=== PATIENT | male | born 1990 | race Caucasian/White ===

== ENCOUNTER 2016-04-21 11:28 | Emergency (ER) | payer OTHER ==
[~2016-04-21 11:28] MED LIST: BUPR15TASR PO; DIPH50CA PO; FISH120012 PO; GLUCTAB6 PO; SUPE1TAB PO; VITMTA PO
--- NOTE | 2016-04-21 12:51 | REP ---
Clinical: Trauma. Technique: AP, lateral, bilateral oblique views of the right digit. Findings: There is an acute avulsion corner fracture along the extensor compartment at the base of the distal phalanx with overlying swelling. Impression: Corner fracture along the extensor compartment at the base of the distal phalanx. Signed by Clinton Cain MD 04/21/2016 12:43 P
--- NOTE | 2016-04-21 13:04 | EDDOCDS ---
Physician Documentation [facility] Name: Jay Frazier Age: 25 yrs Sex: Male : 1990 Arrival Date: 04/21/2016 Time: 11:28 Bed TR8 Private MD: [facility] [place] Disposition: 04/21/16 12:53 Discharged to Home/Self Care. Impression: Mallet finger of right finger(s) - fifth. - Condition is Stable. - Discharge Instructions: Cast or Splint Care, Mallet Finger. - Medication Reconciliation, Local Pharmacy Hours form. - Follow up: [facility]; When: Tomorrow; Reason: Recheck today's complaints, Continuance of care. Follow up: Donald Espinosa; When: Call to arrange an appointment; Reason: Recheck today's complaints. - Problem is new. - Symptoms are unchanged. - Notes: keep finger in splint, arrange follow up with orthopedics. Historical: - Allergies: No known drug Allergies; - Home Meds: 1. none - PMHx: Depression; - PSHx: none; - Social history: Smoking status: Patient states was never smoker of tobacco. No barriers to communication noted, The patient speaks fluent German, Speaks appropriately for age. - Family history: Not pertinent. - : The pt / caregiver states he / she is not on anticoagulants. Home medication list is obtained from the patient. - Exposure Risk Screening:: None identified. Vital Signs: 04/21 11:30 BP 122 / 63; Pulse 89; Resp 18; Temp 97.2(O); Pulse Ox 98% on R/A; Weight 77.11 kg / ct3 170 lbs (R); Height 5 ft. 10 in. (177.80 cm) (R); Pain 2/10; 12:59 BP 118 / 77 RA Sitting (auto/lg); Pulse 73; Resp 18; Temp 97.7(T); Pulse Ox 98% on R/A; rs6 Pain 1/10; 11:30 Body Mass Index 24.39 (77.11 kg, 177.80 cm) ct3 MDM: 12:17 Fingers Ordered. EDMS Signatures: Dispatcher [employer] EDMS Samy Alexander PA-C PA-C ar2 Shanelle Nelson RN RN hs1 Nicolasa Lacey,BK RN ms18 BRENDAD
--- NOTE | 2016-04-21 13:04 | EDDOCDS ---
Nurse's Notes [facility] Name: Jay Frazier Age: 25 yrs Sex: Male : 1990 Arrival Date: 04/21/2016 Time: 11:28 Bed TR8 Private MD: MEFlor CHINCHILLA Diagnosis: Mallet finger of right finger(s)-fifth Presentation: 04/21 11:39 Presenting complaint: Patient states: thinks he might have broken his little finger on hs1 right hand. Patient states injury occurred was ice skating 6 days ago. Adult Sepsis Screening: The patient does not have new or worsening altered mentation. Patient's respiratory rate is less than 22. Systolic blood pressure is greater than 100. Patient has a qSOFA score of 0- Negative Sepsis Screen. Suicide/Homicide risk assessment- the patient denies having any suicidal and/or homicidal ideations and does not present with any other emotional, behavioral or mental health complaints. 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 Transition of care: patient was not received from another setting of care. 11:39 Acuity: NAHOMY Level 4 hs1 11:39 Method Of Arrival: Walkin/Carried/Asstd hs1 Triage Assessment: 11:40 General: Appears in no apparent distress, Behavior is appropriate for age, cooperative. hs1 Pain: Denies pain. HIV screening NA for this visit Offered previously. Musculoskeletal: Bony deformity noted of dorsal aspect of distal phalanx of right little finger. Historical: - Allergies: No known drug Allergies; - Home Meds: 1. none - PMHx: Depression; - PSHx: none; - Social history: Smoking status: Patient states was never smoker of tobacco. No barriers to communication noted, The patient speaks fluent Tajik, Speaks appropriately for age. - Family history: Not pertinent. - : The pt / caregiver states he / she is not on anticoagulants. Home medication list is obtained from the patient. - Exposure Risk Screening:: None identified. Screenin:00 Screening information is obtained from the patient. Fall risk: No risks identified. ms18 Assistance ADL's: requires no assistance with activities of daily living. Abuse/DV Screen: The patient / caregiver reports he/she is: not in a situation that causes fear, pain or injury. Nutritional screening: No deficits noted. Advance Directives: There is no living will. home support is adequate. Assessment: 13:00 General: Appears in no apparent distress, comfortable, well nourished, well groomed, ms18 Behavior is appropriate for age, cooperative. Pain: Location: dorsal aspect of distal phalanx of right little finger Pain currently is 1 out of 10 on a pain scale. Neurological: Level of Consciousness is awake, alert, obeys commands, Oriented to person, place, time. Respiratory: Airway is patent Respiratory effort is even, unlabored. Derm: Skin is pink, warm & dry. Musculoskeletal: No deformity noted. Vital Signs: 11:30 BP 122 / 63; Pulse 89; Resp 18; Temp 97.2(O); Pulse Ox 98% on R/A; Weight 77.11 kg (R); ct3 Height 5 ft. 10 in. (177.80 cm) (R); Pain 2/10; 12:59 BP 118 / 77 RA Sitting (auto/lg); Pulse 73; Resp 18; Temp 97.7(T); Pulse Ox 98% on R/A; rs6 Pain 1/10; 11:30 Body Mass Index 24.39 (77.11 kg, 177.80 cm) ct3 Vitals: 11:30 Log In Time: April 21, 2016 at 11:27. ct3 ED Course: 11:29 Patient visited by Nicci Camacho PCA. ct3 11:29 [facility] is Private Physician. ct3 11:29 Patient moved to Waiting ct3 11:31 Patient moved to Pre RCE ct3 11:40 Triage Initiated hs1 12:10 Patient moved to Triage 1 ms18 12:12 Samy Alexander PA-C is PHCP. ar2 12:12 Whitney Mayorga MD is Attending Physician. ar2 12:13 Patient visited by Samy Alexander PA-C. ar2 12:22 Patient moved to TR1 ms18 12:41 Patient moved to PR1 / 25 ms18 12:53 [facility] is Referral Physician. ar2 12:53 Donald Espinosa is Referral Physician. ar2 12:59 Patient visited by Nika Clement PCA. rs6 13:00 Patient moved to TR8 ms18 13:00 The patient / caregiver is instructed regarding the plan of care and ED course. Patient ms18 has correct armband on for positive identification. Property sent home with patient. :Personal belongings accompany Pt. 13:00 No IV's were initiated during this patient's visit. No procedures done that require ms18 assistance. Karrie CAPELLAN splinted pt's finger. Order Results: There are currently no results for this order. Outcome: 12:53 Discharge ordered by Provider. ar2 13:00 Discharge Assessment: Patient awake, alert and oriented x 3. No cognitive and/or ms18 functional deficits noted. Patient verbalized understanding of disposition instructions. patient administered narcotics - no. The following High Risk Discharge criteria are identified: None. Discharged to home ambulatory. Condition: good Condition: stable Condition: improved. Discharge instructions given to patient, Instructed on discharge instructions, follow up and referral plans. Demonstrated understanding of instructions, Pt was receptive of discharge instructions/ teaching. No special radiology studies were completed. 13:03 Patient left the ED. ms18 Signatures: Samy Alexander, LISSET PA-C ar2 Shanelle Nelson, RN RN hs1 Nicci Camacho, OUTBOUND SUPERVISOR OUTBOUND SUPERVISOR ct3 Nicolasa Lacey,BK RN ms18 Nika Clement, OUTBOUND SUPERVISOR OUTBOUND SUPERVISOR rs6 MTDD
--- NOTE | 2016-04-23 14:04 | EDDOCDS ---
Physician Documentation [facility] Name: Jay Frazier Age: 25 yrs Sex: Male : 1990 Arrival Date: 04/21/2016 Time: 11:28 Bed TR8 Private MD: [facility] [place] Disposition: 04/21/16 12:53 Discharged to Home/Self Care. Impression: Mallet finger of right finger(s) - fifth. - Condition is Stable. - Discharge Instructions: Cast or Splint Care, Mallet Finger. - Medication Reconciliation, Local Pharmacy Hours form. - Follow up: [facility]; When: Tomorrow; Reason: Recheck today's complaints, Continuance of care. Follow up: Donald Espinosa; When: Call to arrange an appointment; Reason: Recheck today's complaints. - Problem is new. - Symptoms are unchanged. - Notes: keep finger in splint, arrange follow up with orthopedics. Historical: - Allergies: No known drug Allergies; - Home Meds: 1. none - PMHx: Depression; - PSHx: none; - Social history: Smoking status: Patient states was never smoker of tobacco. No barriers to communication noted, The patient speaks fluent Croatian, Speaks appropriately for age. - Family history: Not pertinent. - : The pt / caregiver states he / she is not on anticoagulants. Home medication list is obtained from the patient. - Exposure Risk Screening:: None identified. Vital Signs: 04/21 11:30 BP 122 / 63; Pulse 89; Resp 18; Temp 97.2(O); Pulse Ox 98% on R/A; Weight 77.11 kg / ct3 170 lbs (R); Height 5 ft. 10 in. (177.80 cm) (R); Pain 2/10; 12:59 BP 118 / 77 RA Sitting (auto/lg); Pulse 73; Resp 18; Temp 97.7(T); Pulse Ox 98% on R/A; rs6 Pain 1/10; 11:30 Body Mass Index 24.39 (77.11 kg, 177.80 cm) ct3 MDM: 12:17 Fingers Ordered. EDMS 14:39 T-Sheet-- Draft Copy was scanned into [employer] and attached to record. gb 14:40 Radiology Report was scanned into [employer] and attached to record. gb Signatures: Dispatcher [employer] EDMS Idania Garg, Reg Reg gb Samy Alexander, LISSET DARLING ar2 Shanelle Nelson RN RN hs1 Nicolasa Lacey RN RN ms18 The chart was reviewed and I authenticate all verbal orders and agree with the evaluation and treatment provided.Attachments: 14:39 T-Sheet-- Draft Copy gb Chart Complete MTDD
--- NOTE | 2016-04-23 14:04 | EDDOCDS ---
Physician Documentation [facility] Name: Jay Frazier Age: 25 yrs Sex: Male : 1990 Arrival Date: 04/21/2016 Time: 11:28 Bed TR8 Private MD: [facility] [place] Disposition: 04/21/16 12:53 Discharged to Home/Self Care. Impression: Mallet finger of right finger(s) - fifth. - Condition is Stable. - Discharge Instructions: Cast or Splint Care, Mallet Finger. - Medication Reconciliation, Local Pharmacy Hours form. - Follow up: [facility]; When: Tomorrow; Reason: Recheck today's complaints, Continuance of care. Follow up: Donald Espinosa; When: Call to arrange an appointment; Reason: Recheck today's complaints. - Problem is new. - Symptoms are unchanged. - Notes: keep finger in splint, arrange follow up with orthopedics. Historical: - Allergies: No known drug Allergies; - Home Meds: 1. none - PMHx: Depression; - PSHx: none; - Social history: Smoking status: Patient states was never smoker of tobacco. No barriers to communication noted, The patient speaks fluent Korean, Speaks appropriately for age. - Family history: Not pertinent. - : The pt / caregiver states he / she is not on anticoagulants. Home medication list is obtained from the patient. - Exposure Risk Screening:: None identified. Vital Signs: 04/21 11:30 BP 122 / 63; Pulse 89; Resp 18; Temp 97.2(O); Pulse Ox 98% on R/A; Weight 77.11 kg / ct3 170 lbs (R); Height 5 ft. 10 in. (177.80 cm) (R); Pain 2/10; 12:59 BP 118 / 77 RA Sitting (auto/lg); Pulse 73; Resp 18; Temp 97.7(T); Pulse Ox 98% on R/A; rs6 Pain 1/10; 11:30 Body Mass Index 24.39 (77.11 kg, 177.80 cm) ct3 MDM: 12:17 Fingers Ordered. EDMS 14:39 T-Sheet-- Draft Copy was scanned into [employer] and attached to record. gb 14:40 Radiology Report was scanned into [employer] and attached to record. gb Signatures: Dispatcher [employer] EDMS Idania Garg, Reg Reg gb Samy Alexander, LISSET DARLING ar2 Shanelle Nelson RN RN hs1 Nicolasa Lacey RN RN ms18 The chart was reviewed and I authenticate all verbal orders and agree with the evaluation and treatment provided.Attachments: 14:39 T-Sheet-- Draft Copy gb Chart Complete MTDD
--- NOTE | 2016-04-23 14:04 | EDDOCDS ---
Nurse's Notes [facility] Name: Jay Frazier Age: 25 yrs Sex: Male : 1990 Arrival Date: 04/21/2016 Time: 11:28 Bed TR8 Private MD: KYFlor CHINCHILLA Diagnosis: Mallet finger of right finger(s)-fifth Presentation: 04/21 11:39 Presenting complaint: Patient states: thinks he might have broken his little finger on hs1 right hand. Patient states injury occurred was ice skating 6 days ago. Adult Sepsis Screening: The patient does not have new or worsening altered mentation. Patient's respiratory rate is less than 22. Systolic blood pressure is greater than 100. Patient has a qSOFA score of 0- Negative Sepsis Screen. Suicide/Homicide risk assessment- the patient denies having any suicidal and/or homicidal ideations and does not present with any other emotional, behavioral or mental health complaints. 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 Transition of care: patient was not received from another setting of care. 11:39 Acuity: NAHOMY Level 4 hs1 11:39 Method Of Arrival: Walkin/Carried/Asstd hs1 Triage Assessment: 11:40 General: Appears in no apparent distress, Behavior is appropriate for age, cooperative. hs1 Pain: Denies pain. HIV screening NA for this visit Offered previously. Musculoskeletal: Bony deformity noted of dorsal aspect of distal phalanx of right little finger. Historical: - Allergies: No known drug Allergies; - Home Meds: 1. none - PMHx: Depression; - PSHx: none; - Social history: Smoking status: Patient states was never smoker of tobacco. No barriers to communication noted, The patient speaks fluent Turkish, Speaks appropriately for age. - Family history: Not pertinent. - : The pt / caregiver states he / she is not on anticoagulants. Home medication list is obtained from the patient. - Exposure Risk Screening:: None identified. Screenin:00 Screening information is obtained from the patient. Fall risk: No risks identified. ms18 Assistance ADL's: requires no assistance with activities of daily living. Abuse/DV Screen: The patient / caregiver reports he/she is: not in a situation that causes fear, pain or injury. Nutritional screening: No deficits noted. Advance Directives: There is no living will. home support is adequate. Assessment: 13:00 General: Appears in no apparent distress, comfortable, well nourished, well groomed, ms18 Behavior is appropriate for age, cooperative. Pain: Location: dorsal aspect of distal phalanx of right little finger Pain currently is 1 out of 10 on a pain scale. Neurological: Level of Consciousness is awake, alert, obeys commands, Oriented to person, place, time. Respiratory: Airway is patent Respiratory effort is even, unlabored. Derm: Skin is pink, warm & dry. Musculoskeletal: No deformity noted. Vital Signs: 11:30 BP 122 / 63; Pulse 89; Resp 18; Temp 97.2(O); Pulse Ox 98% on R/A; Weight 77.11 kg (R); ct3 Height 5 ft. 10 in. (177.80 cm) (R); Pain 2/10; 12:59 BP 118 / 77 RA Sitting (auto/lg); Pulse 73; Resp 18; Temp 97.7(T); Pulse Ox 98% on R/A; rs6 Pain 1/10; 11:30 Body Mass Index 24.39 (77.11 kg, 177.80 cm) ct3 Vitals: 11:30 Log In Time: April 21, 2016 at 11:27. ct3 ED Course: 11:29 Patient visited by Nicci Camacho PCA. ct3 11:29 [facility] is Private Physician. ct3 11:29 Patient moved to Waiting ct3 11:31 Patient moved to Pre RCE ct3 11:40 Triage Initiated hs1 12:10 Patient moved to Triage 1 ms18 12:12 Samy Alexander PA-C is PHCP. ar2 12:12 Whitney Mayorga MD is Attending Physician. ar2 12:13 Patient visited by Samy Alexander PA-C. ar2 12:22 Patient moved to TR1 ms18 12:41 Patient moved to PR1 / 25 ms18 12:53 [facility] is Referral Physician. ar2 12:53 Donald Espinosa is Referral Physician. ar2 12:59 Patient visited by Nika Clement PCA. rs6 13:00 Patient moved to TR8 ms18 13:00 The patient / caregiver is instructed regarding the plan of care and ED course. Patient ms18 has correct armband on for positive identification. Property sent home with patient. :Personal belongings accompany Pt. 13:00 No IV's were initiated during this patient's visit. No procedures done that require ms18 assistance. Karrie CAPELLAN splinted pt's finger. 13:16 Fingers Returned. EDMS 14:39 T-Sheet-- Draft Copy was scanned into [employer] and attached to record. 14:40 Radiology Report was scanned into [employer] and attached to record. gb Order Results: Radiology Order: Fingers Test: Fingers REASON FOR EXAMINATION: trauma, mallet finger; Clinical: Trauma.; ; Technique: AP, lateral, bilateral oblique views of the right digit.; ; Findings:; There is an acute avulsion corner fracture along the extensor compartment at the; base of the distal phalanx with overlying swelling.; ; Impression:; Corner fracture along the extensor compartment at the base of the distal; phalanx.; ; ; Signed by; Clinton Cain MD 04/21/2016 12:43 P; Outcome: 12:53 Discharge ordered by Provider. ar2 13:00 Discharge Assessment: Patient awake, alert and oriented x 3. No cognitive and/or ms18 functional deficits noted. Patient verbalized understanding of disposition instructions. patient administered narcotics - no. The following High Risk Discharge criteria are identified: None. Discharged to home ambulatory. Condition: good Condition: stable Condition: improved. Discharge instructions given to patient, Instructed on discharge instructions, follow up and referral plans. Demonstrated understanding of instructions, Pt was receptive of discharge instructions/ teaching. No special radiology studies were completed. 13:03 Patient left the ED. ms18 Signatures: Dispatcher [employer] EDNV Idania Garg, Reg Reg Samy Dior, LISSET PAVenessaC ar2 Shanelle Nelson, BK RN hs1 Nicci Camacho, MAINTENANCE WELDER MAINTENANCE WELDER ct3 Nicolasa Lacey,BK RN ms18 Nika Clement, MAINTENANCE WELDER MAINTENANCE WELDER rs6 Chart Complete MTDD
== END 2016-04-21 13:03 | disposition home or self-care (01) ==
LOC: M ED 11:28
DX: S62.667A Nondisplaced fracture of distal phalanx of left little finger, initial encounter for closed fracture (principal); V00.211A Fall from ice-skates, initial encounter; Y92.330 Ice skating rink (indoor) (outdoor) as the place of occurrence of the external cause; Y93.21 Activity, ice skating; Y99.8 Other external cause status; F32.9 Major depressive disorder, single episode, unspecified